=== PATIENT | male | born 1960 | race Caucasian/White ===

== ENCOUNTER 2019-12-21 08:43 | Outpatient (CLI) | payer OTHER, SELFPAY ==
[2019-12-21 09:28] LABS: Alanine Aminotransferase 19 U/L (4-50); Albumin Level 4.3 g/dL (3.5-5.1); Alkaline Phosphatase 52 U/L (38-126); Aspartate Amino Transferase 28 U/L (17-59); Bilirubin,Total 0.6 mg/dL (0.2-1.3); Blood Urea Nitrogen 21 mg/dL (9-20); Calcium 9.4 mg/dL (8.4-10.2); Carbon Dioxide 33 mmol/L (22-30); Chloride 102 mmol/L (98-107); Cholesterol 165 mg/dL (0-200); Estimated Glomerular Filt Rate > 60; Glucose 102 mg/dL (75-110); HDL Direct 45 mg/dL; Potassium 4.3 mmol/L (3.4-5.0); Sodium 140 mmol/L (137-145); Triglycerides 90 mg/dL (<150)
[2019-12-21 09:30] LABS: Hemoglobin A1C 5.9 % (<5.7)
[2019-12-21 09:39] LABS: LDL Cholesterol Direct 93 mg/dL
[2019-12-25 12:28] LABS: Vitamin D 1,25 (OH)2 Total 49 pg/mL (18-72); Vitamin D2 1,25 (OH)2 <8 pg/mL; Vitamin D3 1,25 (OH)2 49 pg/mL
== END 2019-12-21 08:44 | disposition home or self-care (01) ==
LOC: ANHLAB 08:45
PROVIDERS: PCP Family Medicine; Visit Provider Family Medicine
DX: E55.9 Vitamin D deficiency, unspecified (principal); E78.5 Hyperlipidemia, unspecified; I10 Essential (primary) hypertension; R73.03 Prediabetes; Z79.899 Other long term (current) drug therapy
CPT/HCPCS: 36415; 80053; 80061; 82652; 83036

== ENCOUNTER 2020-09-25 12:49 | Outpatient (CLI) | payer OTHER, SELFPAY ==
[2020-09-25 13:22] LABS: Alanine Aminotransferase 23 U/L (4-50); Albumin Level 4.4 g/dL (3.5-5.1); Alkaline Phosphatase 54 U/L (38-126); Anion Gap 4 mmol/L (8-16); Aspartate Amino Transferase 31 U/L (17-59); Bilirubin,Total 0.7 mg/dL (0.2-1.3); Blood Urea Nitrogen 20 mg/dL (9-20); Calcium 9.2 mg/dL (8.4-10.2); Carbon Dioxide 33 mmol/L (22-30); Chloride 103 mmol/L (98-107); Cholesterol 164 mg/dL (0-200); Estimated Glomerular Filt Rate > 60; Glucose 99 mg/dL (75-110); HDL Direct 48 mg/dL; Potassium 4.1 mmol/L (3.4-5.0); Sodium 140 mmol/L (137-145); Triglycerides 76 mg/dL (<150)
[2020-09-25 13:33] LABS: LDL Cholesterol Direct 90 mg/dL
== END 2020-09-25 12:50 | disposition home or self-care (01) ==
PROVIDERS: PCP Family Medicine; Visit Provider Family Medicine
DX: E78.5 Hyperlipidemia, unspecified (principal)
CPT/HCPCS: 36415; 80053; 80061

== ENCOUNTER → 2020-10-12 09:24 | Outpatient (CLI) | payer OTHER, SELFPAY ==
[2020-10-12 20:23] LABS: SARS-CoV-2 RNA PCR Negative
== END ==
PROVIDERS: PCP Family Medicine; Visit Provider Family Medicine
DX: R05 Cough (principal); Z20.822 Contact with and (suspected) exposure to COVID-19
CPT/HCPCS: C9803; U0003; U0005

== ENCOUNTER → 2020-10-23 04:55 | Outpatient (CLI) | payer OTHER, SELFPAY ==
[2020-10-23 19:22] LABS: SARS-CoV-2 RNA PCR Negative
== END ==
PROVIDERS: PCP Family Medicine; Visit Provider Internal Medicine Gastroenterology
DX: Z01.812 Encounter for preprocedural laboratory examination (principal); Z20.822 Contact with and (suspected) exposure to COVID-19
CPT/HCPCS: C9803; U0003; U0005

== ENCOUNTER 2020-10-26 01:36 | Day surgery (SDC) | payer OTHER, SELFPAY ==
[2020-10-12 14:08] VITALS: BMI 23.3
[2020-10-26 10:41] VITALS: BP 134/91; PULSE 70; RESP 16; TEMP 36.3; O2SAT 99; BMI 23.2
[2020-10-26] MEDS: LACTATED RINGERS 1,000 ML 150 ML IV CONT (10:44)
--- NOTE | 2020-10-26 11:06 | WPDANESEPPF ---
Anes - Initial Pre Proc Eval Procedure: Operation Date: 10/26/20 11:30 Proposed Procedures p Screening Colonoscopy - Emilio Bradford DO Date/Time: 10/26/20 11:06 Surgeon: Emilio Bradford DO Pre Op Diagnosis: Neoplasm Screening Patient Data Age: 60 Gender: M Height: 5 ft 11 in Weight: 75.5 kg Last Vital Signs Temp 97.3 F L 10/26/20 10:41 Pulse 70 10/26/20 10:41 Resp 16 10/26/20 10:41 BP 134/91 H 10/26/20 10:41 Pulse Ox 99 10/26/20 10:41 Allergies Allergy/AdvReac Type Severity Reaction Status Date / Time No Known Allergies Verified 10/26/20 10:39 Home Medications Medication Instructions Recorded Confirmed Type cholecalciferol (vitamin D3) 50 mcg PO DAILY 10/07/19 10/26/20 History [Vitamin D3] simvastatin 10 mg tablet See Rx Instructions .ROUTE 09/21/20 10/26/20 Rx .COMPLEX #90 tablet azithromycin 250 mg tablet 250 mg PO DIRECTED #6 tablet 10/12/20 10/26/20 Rx methylprednisolone 4 mg tablets in See Rx Instructions PO PER PKG DIR 10/12/20 10/26/20 Rx a dose pack #21 ea Patient hx anesthesia problems: none Family hx anesthesia problems: none PMFSH Past Medical History Medical History (Updated 10/26/20 @ 11:01 by Mitul Ribera MD) Hypercholesteremia Tear meniscus knee (~07/11/18) Surgical History Surgical History H/O colonoscopy (~07/02/09) Family History Family History Father Family history of cardiovascular disease Acute myocardial infarction Family history of coronary artery disease Mother Family history of cardiovascular disease Family history of coronary artery disease Grandparent Family history of throat cancer Social History Social History Smoking status: Never smoker Alcohol intake: current Drinks per week: 1 Substance use type: does not use Living arrangements: with family Spiritual care concerns: No Anes - Eval Final PreProcedure Day of Procedure 10/26/20 11:06 Patient weight: normal Heart: regular rate and rhythm Lungs: clear to auscultation Airway: Mallampati scale class II Neurological: alert and oriented Last oral intake: >/= 8 hours ASA classification: II Emergent: no Anesthetic plan: proceed Anesthesia type and monitoring: general GIVS and standard monitoring Informed Consent: The patient's anesthetic plan and its attendant risks and benefits were discussed with the patient/family/POA. Questions were solicited and answers provided to the satisfaction of the patient/family/POA.
--- NOTE | 2020-10-26 11:41 | WPDGICN ---
GI Consult Note Consult date/time: 10/26/20 11:41 HPI: Reason for visit colonoscopy. This very pleasant gentleman seen in consultation request primary physician. Impression: Screening colonoscopy. The patient does have a family history of colon polyps. Hyperlipidemia. Pre diabetes. Recommendation: Colonoscopy. History: This very pleasant gentleman is negative GI review of systems. Is here for screening colonoscopy. He has a brother and sister with adenomatous colon polyps. Physical examination: General: very pleasant patient in no acute distress. HEENT: Head was normocephalic sclerae is clear mouth without masses neck was supple. Heart: Rate rhythm regular without S3 or S4. Lungs: CTA. Abdomen: Soft with no guarding or rigidity. Bowel sounds were active. Neurologic: Cranial nerves 2 through 12 intact. No focal defects. No clonus. Musculoskeletal system: Revealed no joint tenderness or swelling no muscle atrophy. Extremities: Reveal no significant edema. Skin: Warm and dry with normal turgor. Mental status: intact. Patient is alert and oriented. Review of Systems Review of Systems: All systems reviewed & are unremarkable except as noted in HPI and below [facility] Past Medical History Medical History (Updated 10/26/20 @ 11:01 by Mitul Ribera MD) Hypercholesteremia Tear meniscus knee (~07/11/18) Surgical History Surgical History H/O colonoscopy (~07/02/09) Family History Family History Father Family history of cardiovascular disease Acute myocardial infarction Family history of coronary artery disease Mother Family history of cardiovascular disease Family history of coronary artery disease Grandparent Family history of throat cancer Social History Social History Smoking status: Never smoker Alcohol intake: current Drinks per week: 1 Substance use type: does not use Living arrangements: with family Spiritual care concerns: No Meds Home Medications and Allergies Home Medications Medication Instructions Recorded Confirmed Type cholecalciferol (vitamin D3) 50 mcg PO DAILY 10/07/19 10/26/20 History [Vitamin D3] simvastatin 10 mg tablet See Rx Instructions .ROUTE 09/21/20 10/26/20 Rx .COMPLEX #90 tablet azithromycin 250 mg tablet 250 mg PO DIRECTED #6 tablet 10/12/20 10/26/20 Rx methylprednisolone 4 mg tablets in See Rx Instructions PO PER PKG DIR 10/12/20 10/26/20 Rx a dose pack #21 ea Allergies Allergy/AdvReac Type Severity Reaction Status Date / Time No Known Allergies Verified 10/26/20 10:39 Vital Signs Vital Signs - 24 hr 10/26/20 10:41 Temperature 36.3 C L Pulse Rate 70 Respiratory Rate 16 Blood Pressure 134/91 H Pulse Oximetry 99
[2020-10-26 12:01] VITALS: BP 120/70; PULSE 62; RESP 15; O2SAT 97
[2020-10-26 12:11] VITALS: BP 115/74; PULSE 71; RESP 15; O2SAT 99
[2020-10-26 12:21] VITALS: BP 139/95; PULSE 71; RESP 15; O2SAT 100
== END 2020-10-26 12:28 | disposition home or self-care (01) ==
PROVIDERS: PCP Family Medicine; Visit Provider Internal Medicine Gastroenterology
PROC: 0DJD8ZZ Inspection of Lower Intestinal Tract, Via Natural or Artificial Opening Endoscopic (ICD-10-PCS; CPT 45378; principal; 2020-10-26 11:30)
DX: Z12.11 Encounter for screening for malignant neoplasm of colon (principal); E78.00 Pure hypercholesterolemia, unspecified; Z83.71 Family history of colonic polyps; R73.03 Prediabetes; K64.8 Other hemorrhoids; N40.0 Benign prostatic hyperplasia without lower urinary tract symptoms
CPT/HCPCS: 45378; J2704; J7120

== ENCOUNTER 2020-10-31 06:57 | Outpatient (CLI) | payer OTHER, SELFPAY ==
[2020-10-31 08:41] LABS: Hemoglobin A1C 5.6 % (<5.7)
[2020-10-31 09:32] LABS: Prostate Specific Antigen 0.7 ng/mL (< OR = 4.0)
== END 2020-10-31 06:58 | disposition home or self-care (01) ==
PROVIDERS: PCP Family Medicine; Visit Provider Family Medicine
DX: R73.03 Prediabetes (principal); Z12.5 Encounter for screening for malignant neoplasm of prostate
CPT/HCPCS: 36415; 83036; 84153; G0103

== ENCOUNTER 2021-02-16 12:58 | Outpatient (CLI) | payer OTHER, SELFPAY ==
--- NOTE | ~2021-02-16 | XR_ITS ---
EXAMINATION: XR lumbar spine 6V w bending DATE: 02/16/2021 13:29 INDICATION: Low back pain TECHNIQUE: Anteroposterior, lateral in neutral, flexion and extension, and bilateral oblique views of the lumbar spine, and cone-down lateral view of the lumbosacral junction were obtained. COMPARISON: MRI, 01/01/2019 FINDINGS: There are 2 mm of stable retrolisthesis of L4 on L5. No laxity is present with flexion or e xtension. There is mild loss of intervertebral disc space height at L4-5 and L5-S1. The vertebral bod y heights are maintained. There is no fracture. Small degenerative osteophytes project from the anter ior endplates of multiple vertebral bodies. IMPRESSION: 1. Mild lumbar spondylosis without acute findings or significant interval change. Reviewed, dictated and finalized at location A. IMPRESSION: 1. Mild lumbar spondylosis without acute findings or significant interval michael e.
== END 2021-02-16 12:59 | disposition home or self-care (01) ==
LOC: ANHIMG 13:03
PROVIDERS: PCP Family Medicine; Visit Provider Family Medicine
DX: M47.896 Other spondylosis, lumbar region (principal)
CPT/HCPCS: 72114

== ENCOUNTER → 2021-04-16 04:37 | Outpatient (CLI) | payer OTHER, SELFPAY ==
[2021-04-16 18:26] LABS: SARS-CoV-2 RNA PCR Negative
== END ==
PROVIDERS: PCP Family Medicine
DX: Z01.812 Encounter for preprocedural laboratory examination (principal); Z20.822 Contact with and (suspected) exposure to COVID-19
CPT/HCPCS: C9803; U0003; U0005

== ENCOUNTER 2021-05-20 07:33 | Outpatient (CLI) | payer OTHER, SELFPAY ==
[2021-05-20 07:58] LABS: Hemoglobin A1C 5.6 % (<5.7)
== END 2021-05-20 07:34 | disposition home or self-care (01) ==
LOC: ANHLAB 07:35
PROVIDERS: PCP Family Medicine; Visit Provider Family Medicine
DX: R73.03 Prediabetes (principal)
CPT/HCPCS: 36415; 83036

== ENCOUNTER 2021-05-24 07:41 | Outpatient (CLI) | payer OTHER, SELFPAY ==
[2021-05-24 08:31] LABS: Alanine Aminotransferase 28 U/L (4-50); Albumin Level 4.2 g/dL (3.5-5.1); Alkaline Phosphatase 60 U/L (38-126); Anion Gap 4 mmol/L (8-16); Aspartate Amino Transferase 33 U/L (17-59); Bilirubin,Total 0.3 mg/dL (0.2-1.3); Blood Urea Nitrogen 17 mg/dL (9-20); Calcium 9.2 mg/dL (8.4-10.2); Carbon Dioxide 32 mmol/L (22-30); Chloride 103 mmol/L (98-107); Cholesterol 163 mg/dL (0-200); Estimated Glomerular Filt Rate > 60; Glucose 103 mg/dL (65-110); HDL Direct 41 mg/dL; Potassium 4.1 mmol/L (3.4-5.0); Sodium 139 mmol/L (137-145); Triglycerides 138 mg/dL (<150)
[2021-05-24 08:42] LABS: LDL Cholesterol Direct 96 mg/dL
== END 2021-05-24 07:42 | disposition home or self-care (01) ==
PROVIDERS: PCP Family Medicine; Visit Provider Family Medicine
DX: E78.5 Hyperlipidemia, unspecified (principal); R03.0 Elevated blood-pressure reading, without diagnosis of hypertension; Z79.899 Other long term (current) drug therapy
CPT/HCPCS: 36415; 80053; 80061

== ENCOUNTER 2021-11-22 11:37 | Outpatient (CLI) | payer OTHER, SELFPAY ==
[2021-11-22 12:19] LABS: Hematocrit 41.7 % (42.0-52.0); Hemoglobin 13.5 g/dL (14.0-18.0); Mean Corpuscular HGB Conc 32.4 g/dl (32-36); Mean Corpuscular Hemoglobin 29.8 pg (26-34); Mean Corpuscular Volume 92.1 fl (80-100); Mean Platelet Volume 9.3 fl (7.4-10.4); Platelet Count Result 207 k/mm3 (150-375); Red Blood Count 4.53 M/mm3 (4.6-6.20); Red Cell Distribution Width 12.7 % (11.5-14.5); White Blood Count 5.5 K/mm3 (4.5-10.0)
[2021-11-22 12:32] LABS: Alanine Aminotransferase 29 U/L (4-50); Albumin Level 4.5 g/dL (3.5-5.1); Alkaline Phosphatase 61 U/L (38-126); Anion Gap 7 mmol/L (8-16); Aspartate Amino Transferase 38 U/L (17-59); Bilirubin,Total 0.5 mg/dL (0.2-1.3); Blood Urea Nitrogen 18 mg/dL (9-20); Calcium 8.7 mg/dL (8.4-10.2); Carbon Dioxide 27 mmol/L (22-30); Chloride 103 mmol/L (98-107); Cholesterol 164 mg/dL (0-200); Estimated Glomerular Filt Rate > 60; Glucose 102 mg/dL (65-110); HDL Direct 43 mg/dL; Potassium 4.1 mmol/L (3.4-5.0); Sodium 137 mmol/L (137-145); Triglycerides 101 mg/dL (<150)
[2021-11-22 12:36] LABS: Hemoglobin A1C 5.5 % (<5.7)
[2021-11-22 12:44] LABS: LDL Cholesterol Direct 92 mg/dL
[2021-11-22 13:03] LABS: Prostate Specific Antigen 0.7 ng/mL (< OR = 4.0)
== END 2021-11-22 11:38 | disposition home or self-care (01) ==
PROVIDERS: PCP Family Medicine; Visit Provider Family Medicine
DX: E78.5 Hyperlipidemia, unspecified (principal); I10 Essential (primary) hypertension; R73.03 Prediabetes; Z12.5 Encounter for screening for malignant neoplasm of prostate; Z79.899 Other long term (current) drug therapy
CPT/HCPCS: 36415; 80053; 80061; 83036; 84153; 84443; 85027; G0103

== ENCOUNTER 2022-06-01 06:56 | Outpatient (CLI) | payer OTHER, SELFPAY ==
[2022-06-01 07:11] LABS: Hematocrit 43.4 % (42.0-52.0); Hemoglobin 14.3 g/dL (14.0-18.0); Mean Corpuscular HGB Conc 32.9 g/dl (32-36); Mean Corpuscular Hemoglobin 30.4 pg (26-34); Mean Corpuscular Volume 92.1 fl (80-100); Mean Platelet Volume 9.2 fl (7.4-10.4); Platelet Count Result 216 k/mm3 (150-375); Red Blood Count 4.71 M/mm3 (4.6-6.20); Red Cell Distribution Width 12.5 % (11.5-14.5); White Blood Count 4.8 K/mm3 (4.5-10.0)
[2022-06-01 07:21] LABS: Alanine Aminotransferase 27 U/L (6-50); Albumin Level 4.4 g/dL (3.5-5.1); Alkaline Phosphatase 50 U/L (38-126); Anion Gap 8 mmol/L (8-16); Aspartate Amino Transferase 28 U/L (17-59); Bilirubin,Total 0.8 mg/dL (0.2-1.3); Blood Urea Nitrogen 19 mg/dL (9-20); Carbon Dioxide 29 mmol/L (22-30); Chloride 103 mmol/L (98-107); Cholesterol 171 mg/dL (0-200); Estimated Glomerular Filt Rate > 60; Glucose 108 mg/dL (65-110); HDL Direct 47 mg/dL; Potassium 4.2 mmol/L (3.4-5.0); Sodium 140 mmol/L (137-145); Triglycerides 98 mg/dL (<150)
[2022-06-01 07:33] LABS: LDL Cholesterol Direct 91 mg/dL
== END 2022-06-01 06:57 | disposition home or self-care (01) ==
LOC: ANHLAB 06:58
PROVIDERS: PCP Family Medicine; Visit Provider Family Medicine
DX: D64.9 Anemia, unspecified (principal); E78.5 Hyperlipidemia, unspecified; I10 Essential (primary) hypertension
CPT/HCPCS: 36415; 80053; 80061; 85027

== ENCOUNTER 2022-12-28 07:30 | Outpatient (CLI) | payer OTHER, SELFPAY ==
[2022-12-28 07:53] LABS: Hematocrit 41.7 % (42.0-52.0); Hemoglobin 13.8 g/dL (14.0-18.0); Mean Corpuscular HGB Conc 33.1 g/dl (32-36); Mean Corpuscular Volume 90.7 fl (80-100); Platelet Count Result 215 k/mm3 (150-375); Red Cell Distribution Width 12.5 % (11.5-14.5); White Blood Count 4.3 K/mm3 (4.5-10.0)
[2022-12-28 08:05] LABS: Alanine Aminotransferase 28 U/L (6-50); Albumin Level 4.2 g/dL (3.5-5.1); Alkaline Phosphatase 57 U/L (38-126); Anion Gap 5 mmol/L (8-16); Aspartate Amino Transferase 33 U/L (17-59); Bilirubin,Total 0.7 mg/dL (0.2-1.3); Blood Urea Nitrogen 25 mg/dL (9-20); Calcium 8.9 mg/dL (8.4-10.2); Carbon Dioxide 29 mmol/L (22-30); Chloride 105 mmol/L (98-107); Cholesterol 150 mg/dL (0-200); Estimated Glomerular Filt Rate > 60; Glucose 101 mg/dL (65-110); HDL Direct 46 mg/dL; Potassium 4.1 mmol/L (3.4-5.0); Sodium 139 mmol/L (137-145); Triglycerides 96 mg/dL (<150)
[2022-12-28 08:17] LABS: LDL Cholesterol Direct 81 mg/dL
[2022-12-28 08:24] LABS: Hemoglobin A1C 5.5 % (<5.7)
[2022-12-28 08:36] LABS: Prostate Specific Antigen 0.6 ng/mL (< OR = 4.0)
== END 2022-12-28 07:31 | disposition home or self-care (01) ==
LOC: ANHLAB 07:33
PROVIDERS: PCP Family Medicine; Visit Provider Family Medicine
DX: D64.9 Anemia, unspecified (principal); E78.5 Hyperlipidemia, unspecified; I10 Essential (primary) hypertension; R73.09 Other abnormal glucose; Z12.5 Encounter for screening for malignant neoplasm of prostate; Z79.899 Other long term (current) drug therapy
CPT/HCPCS: 36415; 80053; 80061; 83036; 84153; 84443; 85027; G0103

== ENCOUNTER 2023-04-11 13:33 | Outpatient (CLI) | payer OTHER, SELFPAY ==
--- NOTE | 2023-04-11 13:40 | ECHO_ITS ---
Patient Info Name: Renard Cancino Age: 63 years : 1960 Gender: Male Ht: 71 in Wt: 170 lbs BSA: 1.97 m2 HR: 78 bpm BP: 101 / 67 mmHg Heart Rhythm: Sinus Rhythm Technical Quality: Fair Exam Date: 04/11/2023 1:59 PM Exam Location: [facility] Patient Status: Outpatient Admit Date: 04/11/2023 Staff Ordering Physician: Lona Mortensen DO Progress Man: Caitie Anderson RDCS Attending Provider: Lona Mortensen DO Referring Physician: Festus AGUILAR; Exam Type: CA echo doppler color flow Study Info Indications - Effusion, right ankle Complete two-dimensional, color flow and Doppler transthoracic echocardiogram is performed. Summary 1. Complete two-dimensional, color flow and Doppler transthoracic echocardiogram is performed. 2. Left ventricular chamber dimension is normal. 3. Left ventricular systolic function is normal, estimated at 60-65%. 4. The left ventricular diastolic function is grade II diastolic dysfunction. 5. E/e' 8 is minimally elevated. 6. There is trace tricuspid valve regurgitation. 7. No pulmonary hypertension, estimated pulmonary arterial systolic pressure is 22 mmHg. Left Ventricle E/e' 8 is minimally elevated. Left ventricular chamber dimension is normal. Left ventricular systolic function is normal, estimated at 60-65%. The left ventricular diastolic function is grade II diastolic dysfunction. Right Ventricle Right ventricular systolic function is normal and with normal TAPSE 2.2 cm. Right ventricular chamber dimension is normal. Left Atria Left atrial chamber dimension is normal. Right Atria Right atrial chamber dimension is normal. Aortic Valve The aortic valve is trileaflet. There is no aortic valve stenosis. There is no aortic valve regurgitation. Pulmonic Valve There is no pulmonic regurgitation. Mitral Valve There is no mitral valve stenosis. There is no mitral valve regurgitation. Tricuspid Valve There is trace tricuspid valve regurgitation. No pulmonary hypertension, estimated pulmonary arterial systolic pressure is 22 mmHg. Pericardium/Pleural There is no pericardial effusion. Inferior Vena Cava Normal inferior vena cava with >50% collapse upon inspiration consistent with normal right atrial pressure, 5 mmHg. Aorta The aortic root size at the sinus of Valsalva is normal. Left Ventricular Outflow Tract Name Value Normal LVOT 2D LVOT Diameter 2.0 cm LVOT Doppler LVOT Peak Gradient 1 mmHg LVOT Mean Gradient 1 mmHg LVOT VTI 11 cm LVOT VTI/AV VTI Ratio 0.6 LVOT Stroke Volume 37 ml LVOT CO 2.4 l/min LVOT CI 1.2 l/min/m2 Pulmonic Valve Name Value Normal RVOT Doppler RVOT Peak Gradient 1 mmHg PV Doppler
== END 2023-04-11 13:34 | disposition home or self-care (01) ==
LOC: ANHCARD 13:34
PROVIDERS: PCP Family Medicine; Visit Provider Family Medicine
DX: M25.471 Effusion, right ankle (principal); M25.472 Effusion, left ankle
CPT/HCPCS: 93306

== ENCOUNTER 2023-06-29 06:56 | Outpatient (CLI) | payer OTHER, SELFPAY ==
[2023-06-29 08:27] LABS: Alanine Aminotransferase 24 U/L (6-50); Alkaline Phosphatase 52 U/L (38-126); Anion Gap 8 mmol/L (8-16); Aspartate Amino Transferase 29 U/L (17-59); Bilirubin,Total 0.9 mg/dL (0.2-1.3); Blood Urea Nitrogen 18 mg/dL (9-20); Calcium 9.1 mg/dL (8.4-10.2); Carbon Dioxide 28 mmol/L (22-30); Chloride 104 mmol/L (98-107); Cholesterol 159 mg/dL (0-200); Estimated Glomerular Filt Rate > 60; Glucose 102 mg/dL (65-110); HDL Direct 43 mg/dL; Potassium 4.2 mmol/L (3.4-5.0); Sodium 140 mmol/L (137-145); Triglycerides 100 mg/dL (<150)
[2023-06-29 08:38] LABS: LDL Cholesterol Direct 89 mg/dL
== END 2023-06-29 06:57 | disposition home or self-care (01) ==
PROVIDERS: PCP Family Medicine; Visit Provider Family Medicine
DX: E78.5 Hyperlipidemia, unspecified (principal); I10 Essential (primary) hypertension
CPT/HCPCS: 36415; 80053; 80061

== ENCOUNTER 2024-01-27 10:03 | Outpatient (CLI) | payer OTHER, SELFPAY ==
[2024-01-27 10:20] LABS: Hematocrit 45.8 % (42.0-52.0); Hemoglobin 15.2 g/dL (14.0-18.0); Mean Corpuscular HGB Conc 33.2 g/dl (32-36); Mean Corpuscular Hemoglobin 29.9 pg (26-34); Mean Corpuscular Volume 90.2 fl (80-100); Mean Platelet Volume 9.4 fl (7.4-10.4); Platelet Count Result 192 k/mm3 (150-375); Red Blood Count 5.08 M/mm3 (4.6-6.20); Red Cell Distribution Width 12.2 % (11.5-14.5); White Blood Count 4.2 K/mm3 (4.5-10.0)
[2024-01-27 10:33] LABS: Alanine Aminotransferase 26 U/L (6-50); Albumin Level 4.4 g/dL (3.5-5.1); Alkaline Phosphatase 52 U/L (38-126); Anion Gap 5 mmol/L (4-12); Aspartate Amino Transferase 34 U/L (17-59); Bilirubin,Total 0.9 mg/dL (0.2-1.3); Blood Urea Nitrogen 23 mg/dL (9-20); Calcium 9.3 mg/dL (8.4-10.2); Carbon Dioxide 29 mmol/L (22-30); Chloride 107 mmol/L (98-107); Cholesterol 178 mg/dL (0-200); Estimated Glomerular Filt Rate > 60; Glucose 104 mg/dL (65-110); HDL Direct 54 mg/dL; Potassium 4.6 mmol/L (3.4-5.0); Sodium 141 mmol/L (137-145); Triglycerides 126 mg/dL (<150)
[2024-01-27 10:44] LABS: LDL Cholesterol Direct 97 mg/dL
[2024-01-30 09:28] LABS: Vitamin D 1,25 (OH)2 Total 45 pg/mL (18-72); Vitamin D2 1,25 (OH)2 <8 pg/mL; Vitamin D3 1,25 (OH)2 45 pg/mL
== END 2024-01-27 10:04 | disposition home or self-care (01) ==
PROVIDERS: PCP Family Medicine; Visit Provider Family Medicine
DX: E78.5 Hyperlipidemia, unspecified (principal); D64.9 Anemia, unspecified; E55.9 Vitamin D deficiency, unspecified; I10 Essential (primary) hypertension; R73.09 Other abnormal glucose; Z79.899 Other long term (current) drug therapy; Z12.5 Encounter for screening for malignant neoplasm of prostate
CPT/HCPCS: 36415; 80053; 80061; 82652; 84153; 84443; 85027; G0103

== ENCOUNTER 2024-07-18 08:56 | Outpatient (CLI) | payer OTHER, SELFPAY ==
[2024-07-18 09:09] LABS: Hematocrit 44.4 % (42.0-52.0); Hemoglobin 14.9 g/dL (14.0-18.0); Mean Corpuscular HGB Conc 33.6 g/dl (32-36); Mean Corpuscular Hemoglobin 29.9 pg (26-34); Mean Corpuscular Volume 89.2 fl (80-100); Platelet Count Result 202 k/mm3 (150-375); Red Blood Count 4.98 M/mm3 (4.6-6.20); Red Cell Distribution Width 12.1 % (11.5-14.5); White Blood Count 4.6 K/mm3 (4.5-10.0)
[2024-07-18 09:20] LABS: Alanine Aminotransferase 35 U/L (6-50); Albumin Level 4.2 g/dL (3.5-5.1); Alkaline Phosphatase 55 U/L (38-126); Anion Gap 1 mmol/L (4-12); Aspartate Amino Transferase 41 U/L (17-59); Bilirubin,Total 0.7 mg/dL (0.2-1.3); Blood Urea Nitrogen 21 mg/dL (9-20); Calcium 9.3 mg/dL (8.4-10.2); Carbon Dioxide 28 mmol/L (22-30); Chloride 108 mmol/L (98-107); Cholesterol 178 mg/dL (0-200); Estimated Glomerular Filt Rate > 60; Glucose 111 mg/dL (65-110); HDL Direct 51 mg/dL; Potassium 4.3 mmol/L (3.4-5.0); Sodium 137 mmol/L (137-145); Triglycerides 149 mg/dL (<150)
[2024-07-18 09:31] LABS: LDL Cholesterol Direct 93 mg/dL
[2024-07-18 11:03] LABS: Hemoglobin A1C 5.7 % (<5.7)
[2024-07-22 11:54] LABS: Vitamin D 1,25 (OH)2 Total 26 pg/mL (18-72); Vitamin D2 1,25 (OH)2 <8 pg/mL; Vitamin D3 1,25 (OH)2 26 pg/mL
== END 2024-07-18 08:57 | disposition home or self-care (01) ==
PROVIDERS: PCP Family Medicine; Visit Provider Family Medicine
DX: E55.9 Vitamin D deficiency, unspecified (principal); R73.09 Other abnormal glucose; D64.9 Anemia, unspecified; I10 Essential (primary) hypertension; E78.5 Hyperlipidemia, unspecified; Z79.899 Other long term (current) drug therapy; R73.03 Prediabetes
CPT/HCPCS: 36415; 80053; 80061; 82652; 83036; 84443; 85027

== ENCOUNTER 2024-08-01 08:52 | Outpatient (CLI) | payer BC, SELFPAY ==
--- NOTE | 2024-08-22 11:21 | P.SLEEP_ITS ---
Sleep Study Date of Study: 08/01/24 Ordering Provider: Lona Mortensen DO Interpreting Physician: Floridalma Dwyer MD Sleep Study Type: Split Polysomnogram Height: 1.78 m Weight: 79.379 kg Body Mass Index: 25.1 Neck Circumference (inches): 16 [place]: 12 Reason for Sleep Study Hypersomnolence Sleep History Renard Cancino is a 64-year-old man with excessive snoring, witnessed apneas, and gasping during sleep. He occasionally awakens from sleep feeling short of breath. He frequently wakes at night with heartburn, belching or coughing.??He frequently snores loudly enough that others complain. He occasionally has tr ouble sleeping when he has a cold. He occasionally wakes up gasping for breath during the night. He occasionally has breathing problems at night. He rarely sweats excessively at night. He never notices his heart pounding or beating irregularly during the night. He occasionally falls asleep during the day. He never falls asleep involuntarily, however rarely has fallen asleep while driving. He never experiences loss of muscle tone with strong emotion. He does not have daytime difficulty at work due to excessive sleepiness, he is a physical therapist. He never feels paralyzed on waking or falling asleep. He never experiences vivid dreams upon waking or falling asleep. He never feels afraid of going to sleep. He never has nightmares. He rarely recalls his dreams. He occasionally has thoughts racing through his mind. He occasionally feels sad or depressed. He occasionally feels anxiety. He rarely notices parts of his body jerk. He rarely kicks during the night. He rarely feels crawling or aching feelings in his legs. He rarely feels leg pain at night. He never has morning jaw pain, never grinds his teeth at night. He occasionally feels bothered by pain during the day, occasionally awakened by pain during the night. He occasionally wakes up feeling stiff in the morning, and he rarely wakes feeling sore or achy. He occasionally awakens with pain in his neck, spine, or joints. Normal bedtime is 10:00 p.m., falling asleep within 10 minute, waking twice at night to go to the bathroom and get a drink of water. He is able to return to sleep within 5-10 minutes. Wake time is 5:30 a.m.. He typically gets between 7 and 8 hours of sleep per night. He sleeps longer on the weekends, same bedtime, 10:00 p.m. and wakes at 8:00 a.m. He rarely takes a nap in the afternoon however a short nap is not refreshing. He is usually drowsy for 1 hour after waking. Habits:??Tobacco: Never smoked tobacco Caffeine: 3 - 4 servings per week. Alcohol: 1-2 servings per week Recreational substances: none [facility] Past Medical History Medical History (Updated 08/22/24 @ 12:09 by Floridalma Dwyer MD) Hypercholesteremia Tear meniscus knee (~07/11/18) Surgical History Surgical History H/O colonoscopy (~07/02/09) Family History Family History Father Family history of cardiovascular disease Acute myocardial infarction Family history of coronary artery disease Mother Family history of cardiovascular disease Family history of coronary artery disease Grandparent Family history of throat cancer Social History Social History Smoking status: Never smoker Alcohol intake: current Drinks per week: 1 Substance use: never Substance use type: does not use Lack of Transportation: No Lack of Food: Never True Current Housing: I Have Housing Concerned About Future Housing: No Difficulty Paying Gas/Electric Bills: No Difficulty Paying for Meds: No Currently Unemployed: No Education: Master's Degree or Higher Difficulty w/ Childcare or Family Care: No Living arrangements: with family Spiritual care concerns: No Medications Home Medications ?Medication ?Instructions ?Recorded ?Confirmed ?Type cholecalciferol (vitamin D3) 50 50 mcg PO DAILY 10/07/19 07/25/24 History mcg (2,000 unit) tablet (Vitamin D3) simvastatin 10 mg tablet See Rx Instructions .Route 05/13/24 07/25/24 Rx .COMPLEX #90 tabs lisinopril 2.5 mg tablet See Rx Instructions .Route 06/24/24 07/25/24 Rx .COMPLEX #90 tabs meloxicam 15 mg tablet See Rx Instructions .Route 08/12/24 Rx .COMPLEX #90 tabs buspirone 15 mg tablet See Rx Instructions PO BID #90 tabs 08/16/24 Rx Sleep Procedure A split night polysomnogram using the TwtBks multi-channel system recorded the standard physiologic parameters including EEG, EOG, submentalis EMG, anterior tibialis EMG, EKG, body position, nasal and oral airflow using nasal pressure sensor and thermistor. Respiratory parameters of chest and abdominal movements were recorded with Respiratory Inductance Plethysmography belts. Oxygen saturation was recorded by pulse oximetry. Video monitoring was also performed. Sleep stages, periodic limb movements, and EEG arousals were scored in 30 second epochs according to the criteria of the AASM Scoring Manual. The Apnea-Hypopnea Index was calculated using [facility] guidelines for definition of hypopnea while scoring respiratory events. He did not take a sleep aid at the beginning of the study. He requested a wake-up time of 5:30 a.m. so he could go to work. After the baseline portion the patient met criteria for a titration with an AHI of 7.0 and desaturation to 85%. He used a medium Vásquez and Paykel Solo nasal mask, initial pressure was 5 cm and then titrated to of 6 cm of water pressure. At this pressure the patient spent 183.5 minutes in bed, 7.5 minutes awake, 149 minutes in non-REM and 27 minutes in REM. The sleep efficiency was 95.9% and the residual apnea-hypopnea index was 0.3. The lowest saturation was 92%. The patient slept in the supine position all night, he had supine REM at this pressure. Sleep Architecture During the diagnostic portion of the study, the total recording time was 144.0 minutes. The total sleep time was 136.5 minutes. Sleep latency was 2.5 minutes. REM latency was 68.0 minutes. Sleep Efficiency was 94.8%. The patient had 5 awakenings for an awakening index of 2.2. Wake after sleep onset time was 5.0 minutes. The patient spent 8.0 minutes, 5.9% of total sleep time in Stage N1. The patient spent 43.5 minutes, 31.9% in Stage N2. The patient spent 23.0 minutes, 16.8% in Stage N3. The patient spent 62.0 minutes, 45.4% in Stage REM sleep. At 01:05:09 AM the patient was placed on PAP treatment and was titrated at pressures ranging from 5* cm/H20 with supplemental oxygen at - up to 6* cm/H20 with supplemental oxygen at -. During the treatment portion of the study, the total recording time was 260.5 minutes. The total sleep time was 248.5 minutes. Sleep latency was 2.5 minutes. REM latency was 99.0 minutes. Sleep Efficiency was 95.4%. Wake after Sleep Onset time was 10.0 minutes. The patient spent 10.5 minutes, 4.2% of total sleep time in Stage N1. The patient spent 155.5 minutes, 62.6% in Stage N2. The patient spent 55.5 minutes, 22.3% in Stage N3. The patient spent 27.0 minutes, 10.9% in Stage REM. Respiratory Analysis During the diagnostic portion of the study, the patient had 7 hypopneas, 6 obstructive apneas, no mixed apneas, and 3 central apneas for an overall Apnea Hypopnea Index of 7.0 events per hour. The REM Apnea Hypopnea Index was 2.9. The NREM Apnea Hypopnea Index was 12.9. The patient had a Central Apnea Hypopnea Index of 1.3. There were no Respiratory Effort Related Arousals. The Respira tory Disturbance Index is 10.5 events per hour. There was no evidence of Isaiah- Alejandro Respirations. During the treatment portion of the study, the patient had no hypopneas, obstructive apneas, or mixed apneas, and 2 central apneas for an overall Apnea Hypopnea Index of 0.5 events per hour. The REM Apnea Hypopnea Index was 0. The NREM Apnea Hypopnea Index was 0.5. The patient had a Central Apnea Hypopnea Index of 0.5. There were no Respiratory Effort Related Arousals. The Respiratory Disturbance Index is 1.0 events per hour. There was no evidence of Isaiah-Alejandro Respirations. Arousals During the diagnostic portion of the study, there were a total of 29 arousals for an arousal index of 12.7. There were 17 respiratory arousals for an index of 7.5. There were - periodic limb movement arousals for an index of -. There were 4 isolated limb movement arousals for an index of 1.8. There were 8 spontaneous arousals for an index of 3.5. During the treatment portion of the study, there were a total of 20 arousals for an index of 4.8. There were 1 respiratory arousals for an index of 0.2. There were - periodic limb movement arousals for an index of -. There were 5 isolated limb movement arousals for an index of 1.2. There were 14 spontaneous arousals for an index of 3.4. Periodic Limb Movements During the diagnostic portion of the study, the patient had 5 isolated limb movements with an index of 2.2. The patient had no periodic limb movements. The patient had a total of 5 limb movements with a total limb movement index of 2.2. During the treatment portion of the study, the patient had 9 isolated limb movements with an index of 2.2. The patient had no periodic limb movements. The patient had a total of 9 limb movements with a total limb movement index of 2.2. Oximetry Data During the diagnostic portion of the study, the patient had an average oxygen saturation of 94% in wake with a minimum oxygen saturation of 89% and a maximum oxygen saturation of 98%. The patient had an average oxygen saturation of 92.5% in sleep with a minimum oxygen saturation of 85% and a maximum oxygen saturation of 96%. The patient had 25 oxygen desaturations resulting in an Oxygen Desaturation Index of 11.0. The patient spent 1.1 minutes, 0.8% of total sleep time with an oxygen saturation less than 88%. During the treatment portion of the study, the patient had an average oxygen saturation of 94.2% in wake with a minimum oxygen saturation of 91% and a maximum oxygen saturation of 96%. The patient had an average oxygen saturation of 93.7% in sleep with a minimum oxygen saturation of 92% and a maximum oxygen saturation of 97%. The patient had 4 oxygen desaturations resulting in an Oxygen Desaturation Index of 1.0. The patient spent no sleep time with an oxygen saturation less than 88%. Snoring Profile Snoring was moderate to loud during the baseline, eliminated during the titration. Cardiac Profile During the diagnostic portion of the study, the EKG showed normal sinus rhythm. The average pulse rate was 72.0 bpm. The minimum pulse rate was 54 bpm. The maximum pulse rate was 97 bpm. No arrhythmias noted. During the treatment portion of the study, the EKG showed normal sinus rhythm. The average pulse rate was 63.9 bpm. The minimum pulse rate was 52 bpm. The maximum pulse rate was 99 bpm. No arrhythmias noted. EEG Profile EEG was unremarkable, no evidence of seizures. Assessment and Plan Assessment and Plan (1) Obstructive sleep apnea: Code(s): G47.33 - Obstructive sleep apnea (adult) (pediatric) Status: Acute Assessment and Plan: This split night sleep study on August 01, 2024 shows mild obstructive sleep apnea, the overall apnea-hypopnea index was 7.0 with desaturation to 85% worse in the supine position, successfully treated using a medium Vásquez and Paykel Solo nasal mask with heated humidity, and a final pressure of CPAP 6 cm. At this pressure the patient spent 183.5 minutes in bed, 7.5 minutes awake, 149 minutes in non-REM and 27 minutes in REM. The sleep efficiency was 95.9% and the residual apnea-hypopnea index was 0.3. The lowest saturation was 92%. The patient should be prescribed this ResMed equipment as well as tubing, filters and reservoir. This should be used with all episodes of sleep. Compliance should be reviewed within 31-90 days of starting therapy for usage greater than 4 hours per night greater than 70% of the nights. The patient should be asked about symptoms such as excessive daytime sleepiness, quality of sleep, decreased nocturia, increased mental functioning such as memory, mood, and concentration. Data The data obtained during this sleep study is adequate for interpretation. Certification This sleep study has been reviewed by a board certified sleep medicine physician.
[2024-08-22 12:27] VITALS: BMI 25.1
== END 2024-08-02 06:05 | disposition home or self-care (01) ==
PROVIDERS: PCP Family Medicine; Visit Provider Family Medicine
DX: G47.10 Hypersomnia, unspecified (principal); R29.818 Other symptoms and signs involving the nervous system; Z79.899 Other long term (current) drug therapy; G47.33 Obstructive sleep apnea (adult) (pediatric); E78.5 Hyperlipidemia, unspecified; E55.9 Vitamin D deficiency, unspecified; R73.09 Other abnormal glucose
CPT/HCPCS: 95811

== ENCOUNTER 2025-01-25 06:52 | Outpatient (CLI) | payer BC, SELFPAY ==
--- OUTSIDE RECORDS SUMMARY | 2025-01-25 06:58 | XMS_ITS | Clinical Summary ---
Author Organization [facility] Address [address] [address] Phone Care Team Providers Care Health Care Attorney Name Role Phone Sanjay Martin MD Primary Care Provider [phone] Social History Tobacco Use Types Packs/Day Years Used Date Smoking Tobacco: Never Assessed Sex and Gender Information Value Date Recorded Sex Assigned at Not on file Legal Sex Male 10:42 AM [employer] Gender Identity Not on file Sexual Orientation Not on file Plan of Treatment Health Maintenance Due Date Last Done Comments Hepatitis C Virus (HCV) Screening 1960 TdaP Immunization 1960 Cologuard 2009 Immunochemical Fecal Occult Blood 2009 Pneumococcal Immunization (5 0+ years) (1 of 1 - PCV) 2009 Zoster Immunization (1 of 2) 2009 PSA Discussion 2014 Influenza Immunization (#1) 2024 SARS-COV-2 Immunization ( season) 2024 Colonoscopy 10/26/2030 10/26/2020, 07/02/2009 Colorectal Cancer Screening 10/26/2030 Respiratory Syncytial Virus (RSV) Immunization (Adult) (1 - 1-dose 75+ series) 2034 Hepatitis B Immunization Aged Out No longer eligible based on patient's age to complete this topic Meningococcal Immunization (ACWY) Aged Out No longer eligible b ased on patient's age to complete this topic Pneumococcal Immunization Combined Aged Out No longer eligible b ased on patient's age to complete this topic Rotavirus Immunization Aged Out No lo nger eligible based on patient's age to complete this topic Procedures Procedure Name Priority Date/Time Associated Diagnosis Comments HM COLONOSCOPY Routine 10/26/2020 from Last 3 Months or Most Recently Relevant to Health Maintenance Results * COLONOSCOPY (10/26/2020) us Not On File Provider PROCEDURE/MINOR SURGICAL OR DERABLES Final Result from Last 3 Months or Most Recently Relevant to Health Maintenance Insurance [facility] Care Teams Health Care Attorney Relationship Specialty Start Date End Date Sanjay Martin MD [address] [place] [address] PCP - General Family Medicine 07/03/19
[2025-01-25 07:50] LABS: Hematocrit 41.9 % (42.0-52.0); Hemoglobin 13.5 g/dL (14.0-18.0); Mean Corpuscular HGB Conc 32.2 g/dl (32-36); Mean Corpuscular Hemoglobin 29.5 pg (26-34); Mean Corpuscular Volume 91.7 fl (80-100); Platelet Count Result 209 k/mm3 (150-375); Red Blood Count 4.57 M/mm3 (4.6-6.20); White Blood Count 5.3 K/mm3 (4.5-10.0)
[2025-01-25 07:51] LABS: Alanine Aminotransferase 25 U/L (6-50); Albumin Level 4.0 g/dL (3.5-5.1); Alkaline Phosphatase 50 U/L (38-126); Anion Gap 5 mmol/L (4-12); Aspartate Amino Transferase 36 U/L (17-59); Bilirubin,Total 0.5 mg/dL (0.2-1.3); Blood Urea Nitrogen 26 mg/dL (9-20); Calcium 9.1 mg/dL (8.4-10.2); Carbon Dioxide 27 mmol/L (22-30); Chloride 106 mmol/L (98-107); Cholesterol 164 mg/dL (0-200); Estimated Glomerular Filt Rate > 60; Glucose 99 mg/dL (65-110); HDL Direct 47 mg/dL; Potassium 4.1 mmol/L (3.4-5.0); Sodium 138 mmol/L (137-145); Total Protein 6.7 g/dL (6.3-8.2); Triglycerides 128 mg/dL (<150)
[2025-01-25 08:10] LABS: Hemoglobin A1C 5.7 % (<5.7)
[2025-01-25 08:24] LABS: Thyroid Stimulating Hormone 2.550 uIU/mL (0.465-4.680)
[2025-01-28 09:39] LABS: Prostate Specific Antigen 1.0 ng/mL (< OR = 4.0)
[2025-01-29 10:37] LABS: Vitamin D 1,25 (OH)2 Total 33 pg/mL (18-72); Vitamin D2 1,25 (OH)2 <8 pg/mL; Vitamin D3 1,25 (OH)2 33 pg/mL
== END 2025-01-25 06:53 | disposition home or self-care (01) ==
LOC: ANHLAB 06:56
PROVIDERS: PCP Family Medicine; Visit Provider Family Medicine
DX: Z12.5 Encounter for screening for malignant neoplasm of prostate (principal); E78.5 Hyperlipidemia, unspecified; I10 Essential (primary) hypertension; E55.9 Vitamin D deficiency, unspecified; R73.09 Other abnormal glucose; Z79.899 Other long term (current) drug therapy
CPT/HCPCS: 36415; 80053; 80061; 82652; 83036; 84153; 84443; 85027; G0103